=== PATIENT | female | born 1970 | race Caucasian/White ===

== ENCOUNTER 2024-09-11 15:38 | Outpatient (CLI) | payer OTHER, SELFPAY | END 2024-09-11 15:39 | disposition home or self-care (01) | PROVIDERS: PCP Registered Nurse; Visit Provider Registered Nurse | DX: R73.03 Prediabetes (principal); Z13.0 Encounter for screening for diseases of the blood and blood-forming organs and certain disorders involving the immune mechanism; Z13.6 Encounter for screening for cardiovascular disorders | CPT/HCPCS: 80053; 80061 ==

== ENCOUNTER 2025-03-15 08:49 | Inpatient (IN) | payer OTHER, SELFPAY ==
[2025-03-15] VITALS (23 sets, daily range): BP systolic 117–152; BP diastolic 46–96; PULSE 47–60; RESP 12–24; TEMP 36–36.8; O2SAT 94–100; BMI 40.4
[2025-03-15] MEDS: HYDROCODONE-ACETAMIN 5-325 MG 1 TAB PO (10:07)
--- NOTE | 2025-03-15 10:15 | CRLHL7_ITS ---
For Patients: As a result of the Cures Act, medical imaging exams and procedure reports are released immediately into your electronic medical record. You may view this report before your referring provider. If you have questions, please contact your health care provider. INDICATION: Atraumatic pain. COMPARISON: None available. TECHNIQUE: AP pelvis, AP and cross-table lateral right hip FINDINGS: Complete nondisplaced medially angulated right basicervical femoral neck fracture. IMPRESSION: Right femoral neck fracture as above. Dictated by Howard Roger MD @ 03/15/2025 11:07:56 AM (Electronically Signed)
--- OUTSIDE RECORDS SUMMARY | 2025-03-15 10:15 | XMS_ITS | Clinical Summary ---
Author Organization [facility] Address [facility] [place] [address] Care Team Providers Care Tank Assembler Name Role Phone Pcp, No Primary Care Provider UnavailBertha Weston Unavailable [phone] Allergies No known active allergies Medications naproxen sodium (Aleve) 220 mg cap Take 220 mg by mouth every 12 hours. Active Active Problems Problem Noted Date Diagnosed Date Melanoma 10/27/2024 Overview (11/19/2024): 10/21/24: Left upper thigh, Malignant melanoma. s/p Tasha 11/04/24 Encounters Date Type Department Care Team Description 03/15/2025 7:30 AM CDT Ancillary Procedure [facility] [address] [facility] [address] [place] [address] Arrived 03/15/2025 Travel 03/13/2025 Travel 03/12/2025 Nurse Triage [facility] Centralized Nurse Triage Pcp, No Back Pain 03/11/2025 Telephone [facility] [address] [place] [address] Jalen Mojica MD Appointment 03/08/2025 3:45 PM CDT Ancillary Procedure [facility] [address] [place] [address] 03/08/2025 2:40 PM CDT Office Visit [facility] [address] [place] [address] Jalen Mojica MD Musculoskeletal Problem (Consultation for RIGHT Hip pain x 1 year / Much worse this past weekend) 03/08/2025 Travel 12/30/2024 7:40 AM CDT Office Visit [facility] [address] [address] Bertha Stearns PA Derm Problem (Full body skin exam ) 12/30/2024 Travel 12/25/2024 Travel from Last 3 Months Social History Tobacco Use Types Packs/Day Years Used Date Smoking Tobacco: Never Smokeless Tobacco: Never Tobacco Cessation:Counseling Given: Not Answered Alcohol Use Standard Drinks/Week Comments Yes 0 (1 standard drink = 0.6 oz pur e alcohol) 3 drinks per month Social Connections Answer Date Recorded Do you often feel lonely or isolated from those around you? 0 03/08/2025 Financial Resource Strain Answer Date R ecorded Difficulty of Paying Living Expenses 3 03/08/2025 Difficulty of Paying Living Expenses Not on file 03/08/2025 Food Insecurity Answer Date Recorded Do you worry your food will run out before you are able to buy more? 1 03/08/2025 Transportation Needs Answer Date Record ed Does lack of transportation keep you from medica l appointments? 1 03/08/2025 Does lack of transportation keep you from work, meetings or getting things that you need? 1 03/08/2025 Housing Stability Answer Date Recorded What is your housing situation today? 1 03/08/2025 Utilities Answer Date Recorded Do you have trouble paying f or utilities (for example, heat, electricity, water, phone)? 1 03/08/2025 Comments Unknown Sex and Gender Information Value Date Recorded Sex Assigned at Not on file Legal Sex Female 12:02 PM [employer] Gender Identity Not on file Sexual Orientation Not on file Travel History Travel Start Travel End [place] 03/08/2025 03/12/2025 Obstetrics History Last Filed Vital Signs Vital Sign Reading Time Taken Comments Blood Pressure 122/76 03/08/2025 2:39 PM CDT Pulse 62 03/08/2025 2:39 PM CDT Temperature - - Respiratory Rate - - Oxygen Saturation 98% 03/08/2025 2:39 PM CDT Inhaled Oxygen Concentration - - Weight 114.7 kg (252 lb 14.4 oz) 03/08/2025 2:39 PM CDT Height 168.2 cm (5' 6.22) 03/08/2025 2:39 PM CD T Body Mass Index 40.55 03/08/2025 2:39 PM CDT Plan of Treatment Upcoming Encounters Date Type Department Care Team (Late st Contact Info) Description 03/16/2025 7:50 AM CDT Office Visit [facility] [address] [place] [address] Jalen Mojica MD [address] [place] [address] 04/14/2025 7:30 AM CDT Office Visit [facility] [address] [address] [place] [address] [place] [address] 04/29/2025 7:25 AM CDT Office Visit [facility] [address] [place] [address] Jalen Mojica MD [address] [place] [address] Health Maintenance Due Date Last Done Comments Tdap 1982 Depression screening for age 12+ 1983 HIV for age 15-65 1986 Hepatitis C screening for age 18-79 1989 Hepatitis B series for 19+ ( 1 of 3 - 19+ 3-dose series) 1990 Tetanus booster 1991 Pap test for age 21-65 1992 Colonoscopy through age 75 2016 Lipids for age 45-75 2016 Mammogram for age 45-75 2016 Pneumococcal series for age 50+ (1 of 1 - PCV) 021 Zoster (shingles) series for age 50+ (1 of 2) 03/28/20 21 COVID-19 vaccine series ( - 2023- season) 4 Influenza Vaccine (Season Ended) 2025 BMI (ht and wt on same day) for age 18+ 03/08/2026 0 03/08/2025 Procedures Procedure Name Priority Date/Time Associated Diagnosis Comments MR HIP RIGHT WO STAT 03/15/2025 8:04 AM CDT Hip pain, right XR HIP 1 VIEW W PELVIS RIGHT Routine 03/08/2025 3:50 PM CDT Hip pain, right from Last 3 Months Results * MR HIP RIGHT WO (03/15/2025 8:04 AM CDT) Anatomical Region Laterality Modality HIPR Magnetic Resonan ce 03/15/2025 8:15 AM CDT Impressions 03/15/2025 8:15 AM CDT 1. Acute fracture of the base of the right femoral neck with varus deformity. 2. Edema in the musculature of the right hip region and iliopsoas bursa consistent with recent injury. 3. Hysterectomy. 4. Small fat containing umbilical hernia. Dictated by Shakeel Cummings MD @ 03/15/2025 8:15:49 AM (Electronically Signed) Narrative 03/15/2025 8:15 AM CDT For Patients: As a result of the Cures Act, medical imaging exams and procedure reports are released immediately into your electronic medical record. You may view this report before your referring provider. If you have questions, please contact your health care provider. EXAM: MRI OF THE RIGHT HIP, WITHOUT CONTRAST CLINICAL INDICATION: Chronic hip pain with recent progression. COMPARISON PLAIN FILMS: 03/08/2025. COMPARISON CROSS-SECTIONAL IMAGING STUDIES: None. TECHNICAL: Axial, sagittal and coronal PD FS small field of view images of the hip. Coronal T1, PD FS and axial T1 images of the pelvis. FINDINGS: RIGHT HIP: Acute fracture of the base of the right femoral neck with prominent varus deformity. There is fluid along the femoral neck fracture. No adjacent intramedullary edema. No subchondral changes. LEFT HIP: No effusion or subchondral changes. No paralabral cyst. OSSEOUS STRUCTURES: No additional fractures are evident. No evidence for avascular necrosis. MUSCULOTENDINOUS STRUCTURES AND BURSAE: Edema in the right gluteus minimus, right gluteus medius, adductors and external rotators consistent with muscle strain. Small amount of fluid in the iliopsoas bursa. SOFT TISSUES: Mild subcutaneous edema in the right hip region. No hematoma. OTHER JOINTS: Sacroiliac joints are maintained. Pubic symphysis is maintained. INTRAPELVIC CONTENTS: No mass, fluid collection or adenopathy. No inguinal hernia. Hysterectomy. Small fat containing umbilical hernia. NEUROVASCULAR STRUCTURES: No abnormality involving the visualized proximal femoral or proximal sciatic nerves. No aneurysmal dilation of the visualized distal aorta or iliac arterial circulation. Procedure Note Shakeel Cummings MD - 03/15/2025 For Patients: As a result of the Cures Act, medical imagingexams and procedure reports are released immediately into your electronicmedical record. You may view this report before your referring provider.If you have questions, please contact your health care provider. EXAM: MRI OF THE RIGHT HIP, WITHOUT CONTRAST CLINICAL INDICATION: Chronic hip pain with recent progression. COMPARISON PLAIN FILMS: 03/08/2025. COMPARISON CROSS-SECTIONAL IMAGING STUDIES: None. TECHNICAL: Axial, sagittal and coronal PD FS small field of view images of the hip.Coronal T1, PD FS and axial T1 images of the pelvis. FINDINGS: RIGHT HIP: Acute fracture of the base of the right femoral neck with prominent varusdeformity. There is fluid along the femoral neck fracture. No adjacentintramedullary edema. No subchondral changes. LEFT HIP: No effusion or subchondral changes. No paralabral cyst. OSSEOUS STRUCTURES: No additional fractures are evident. No evidence for avascular necrosis. MUSCULOTENDINOUS STRUCTURES AND BURSAE: Edema in the right gluteus minimus, right gluteus medius, adductors andexternal rotators consistent with muscle strain. Small amount of fluid inthe iliopsoas bursa. SOFT TISSUES: Mild subcutaneous edema in the right hip region. No hematoma. OTHER JOINTS: Sacroiliac joints are maintained. Pubic symphysis is maintained. INTRAPELVIC CONTENTS: No mass, fluid collection or adenopathy. No inguinal hernia.Hysterectomy. Small fat containing umbilical hernia. NEUROVASCULAR STRUCTURES: No abnormality involving the visualized proximal femoral or proximalsciatic nerves. No aneurysmal dilation of the visualized distal aorta oriliac arterial circulation. IMPRESSION: 1. Acute fracture of the base of the right femoral neck with varusdeformity. 2. Edema in the musculature of the right hip region and iliopsoas bursaconsistent with recent injury. 3. Hysterectomy. 4. Small fat containing umbilical hernia. Dictated by Shakeel Cummings MD @ 03/15/2025 8:15:49 AM (Electronically Signed) us Jalen Mojica MD MR Final Res ult * XR HIP 1 VIEW W PELVIS RIGHT (03/08/2025 3:50 PM CDT) Anatomical Region Laterality Modality HIPS, HIPR, Pelvis Computed Radi ography 03/09/2025 9:25 AM CDT Narrative 03/09/2025 9:25 AM CDT For Patients: As a result of the Cures Act, medical imaging exams and procedure reports are released immediately into your electronic medical record. You may view this report before your referring provider. If you have questions, please contact your health care provider. Indication: Hip pain Technique: Pelvis and right hip 2 views Comparison: None Findings: Hip joints are maintained bilaterally. Incidental transitional lumbosacral anatomy on the left at L5-S1. No fracture. Intact pubic rami and symphysis pubis. Normal sacroiliac joints. Impression: Normal right hip joint. Dictated by Zachary Wilson MD @ 03/09/2025 9:25:54 AM (Electronically Signed) Procedure Note Zachary Wilson MD - 03/09/2025 For Patients: As a result of the Cures Act, medical imagingexams and procedure reports are released immediately into your electronicmedical record. You may view this report before your referring provider.If you have questions, please contact your health care provider. Indication: Hip pain Technique: Pelvis and right hip 2 views Comparison: None Findings: Hip joints are maintained bilaterally. Incidental transitional lumbosacralanatomy on the left at L5-S1. No fracture. Intact pubic rami and symphysispubis. Normal sacroiliac joints. Impression: Normal right hip joint. Dictated by Zachary Wilson MD @ 03/09/2025 9:25:54 AM (Electronically Signed) us Jalen Mojica MD GENERAL IMAGING Final Res ult from Last 3 Months Insurance [place] [id number] [employer] Care Teams Tank Assembler Relationship Specialty Start Date End Date Pcp, No . PCP - General 10/21/24 Bertha Stearns PA [address] [place] [address] Dermatology 10/27/24
--- NOTE | 2025-03-15 10:19 | ED.NURSE ---
Patient was wheeled to bathroom in wheelchair and used pivot on good leg to transfer.
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
--- NOTE | 2025-03-15 10:42 | CRLHL7_ITS ---
For Patients: As a result of the Cures Act, medical imaging exams and procedure reports are released immediately into your electronic medical record. You may view this report before your referring provider. If you have questions, please contact your health care provider. Indication: Hip fracture Comparison: None available. Technique: Single AP view chest Findings: There is hyperinflation and chronic interstitial change. There is no focal consolidation, effusion, or pneumothorax. The cardiomediastinal silhouette is within normal limits. The bony thorax is grossly intact. Impression: No acute cardiopulmonary abnormality. Dictated by Davin Mendoza MD @ 03/15/2025 11:13:08 AM (Electronically Signed)
[2025-03-15] MEDS: LACTATED RINGERS 1000 ML 1,000 ML 100 ML IV ×2 (13:05→18:21)
[2025-03-15] MEDS: SODIUM CHLORIDE 0.9 % (FLUSH) 10 ML SYRINGE IVF ×3 (13:14→20:16)
[2025-03-15] MEDS: MIDAZOLAM HCL 1 MG/ML inj IVP (14:35)
[2025-03-15] MEDS: fentaNYL 100 MCG/2 ML inj IVP (14:35)
--- NOTE | 2025-03-15 14:45 | CRLHL7_ITS ---
For Patients: As a result of the Cures Act, medical imaging exams and procedure reports are released immediately into your electronic medical record. You may view this report before your referring provider. If you have questions, please contact your health care provider. Indication: Hip replacement surgery Technique: AP hip fluoroscopic image. Fluoroscopy time 75.3 seconds. Findings/Impression: Hardware from a right total hip arthroplasty is in satisfactory position. Dictated by Zachary Wilson MD @ 03/16/2025 11:22:36 AM (Electronically Signed)
--- NOTE | 2025-03-15 14:51 | SUR.PREOP ---
TIME?OUT:?4565 PT/melody agustin RN/chandni costello MDA?VERIFICATION?OF?SURGICAL?SITE,?PROCEDURE,?AND?CONSENT OBTAINED?PRIOR?TO?INVASIVE?PROCEDURE.
--- NOTE | 2025-03-15 15:34 | W.PM.NB ---
Nerve Block Nerve Block Time Seen by Provider: 14:35 Date Seen: 03/15/25 Type of block requested by surgeon for post-operative analgesia: SUNNY/LFCN Side: right Time out performed: Yes Verification of patient name: Yes Verification of date of : Yes Site marking: site marked Name of person performing procedure: Isra Continuous monitoring Was continuous monitoring of O2 sat, B/P, entry level electrician, recorded every 15 minutes?: Yes Procedure Checklist: sterile prep, needles and gloves Ultrasound guided. Images saved: Yes Medications given in 5ml increments after negative aspiration: Ropivicaine %: 0.5 mL: 30 Needle gauge: 20 Precedex (mcg): 25 Patient tolerated procedure well: Yes Additional comments: Patient sedated in block room and attempt at SUNNY was made. Image quality was not ideal and pressure of the ultrasound probe caused too much pain. LFC was completed in preop. at 1545 in OR after induction of GA SUNNY block was performed after a timeout for safety was done. This time quality images were obtained. Needle noted below psoas tendon needle noted adjacent to LFCN Block Charges Block Charge (with Pro Fee): Other Periph Nerve Block Use of Ultrasound Machine for Block: Yes- US Guidance/pain block
--- NOTE | 2025-03-15 15:39 | PM.ORCN ---
History of Present Illness HPI Date Seen: 03/15/25 Chief complaint: right side hip fracture- MRI sending imagens Narrative: Shoshana is a pleasant 54-year-old female sent to the emergency department from Radiology after an abnormal MRI result of the right hip (it showed a displaced right femoral neck fracture). She has been experiencing bilateral anterior thigh and groin pain for approximately 1 year. This would flare when she would try to go from sit to stand position. Over last 2 weeks, the pain on the right side became significantly worse. She presented [facility] on 03/08/2025 where x-rays were obtained revealed no pathology. With ongoing right hip pain, she eventually presented for an MRI of the right hip on 03/15/2025 (today). Given the displaced fracture, she was promptly encouraged to transition over to the emergency department. There, x-rays were obtained and indeed showed a clear displaced femoral neck fracture. Orthopedics was consulted accordingly. [facility] Medical History Sleep apnea ?G47.30 - Sleep apnea, unspecified (ICD-10) Surgical History Previous section ?Z98.891 - History of uterine scar from previous surgery (ICD-10) History of cholecystectomy ?Z90.49 - Acquired absence of other specified parts of digestive tract (ICD-10) History of hysterectomy ?Z90.710 - Acquired absence of both cervix and uterus (ICD-10) Family History Mother Ovarian cancer, Onset Age: 45 Maternal Grandmother Breast cancer Father High blood pressure Social History What is your current living situation?: I presently have a place to live In the past 12 months, utilities in danger of being shut off: no In past 12 months, lack of transportation kept you from medical appts, meetings, work, or getting things needed for daily living: no In the past 12 mos, have been you worried that your food would run out before you had money to buy more?: never true In the past 12 mos, the food you bought just didn't last and you didn't have money to buy more?: never true Smoking Status: Never smoker How often do you have a drink containing alcohol: monthly or less AUDIT-C Alcohol total score: 1 Non-prescribed substance use: denies use Caffeine: Yes Are you now , , , , never or living with a partner: Social isolation score (0-1 are the most socially isolated patients): 1 How often does anyone, including family, friends and others, physically hurt you: never How often does anyone, including family, friends and others, insult or talk down to you: never How often does anyone, including family, friends and others, threaten you with harm: never How often does anyone, including family, friends and others, scream or curse at you: never Meds Home Medications and Allergies Home Medications ?Medication ?Instructions ?Recorded ?Confirmed ?Type No Known Home Medications 09/11/24 03/15/25 History Allergies Allergy/AdvReac Type Severity Reaction Status Date / Time No Known Drug Allergies Allergy Verified 12/29/24 15:30 Ortho Exam Narrative Exam Narrative: 169 cm tall reportedly. 113 kg. BMI of 40 She is lying supine on the [facility] upon my encounter. She is alert and orient x3. Cooperative with the exam. Provides the history, but her does augment the history. Right hip exam shows a resting externally rotated and shortened right lower extremity limb. Neurologic intact in the superficial and deep peroneal and plantar distribution to sensory light touch and motor function. 2+ DP and PT pulse. Hip and knee range of motion and strength testing are deferred due to the hip fracture. Left lower extremity otherwise has normal range of motion and normal mechanics without clear abnormality. She does have some groin pain with hip manipulation. Const Vital Signs, click to edit/add: Vital Signs - 24 hr 03/15/25 09:03 03/15/25 13:11 03/15/25 14:35 Temperature 98.2 F 97.9 F Pulse Rate 59 L 56 L Pulse Rate [Pulse Oximeter] 60 Respiratory Rate 18 16 16 Blood Pressure 152/64 H 148/95 H Blood Pressure [Right Upper Arm] 128/69 Pulse Oximetry 94 97 100 Oxygen Delivery Method Room Air Room Air Room Air 03/15/25 14:40 03/15/25 14:45 Temperature Pulse Rate 58 L 59 L Pulse Rate [Pulse Oximeter] Respiratory Rate 16 16 Blood Pressure 144/81 H 145/73 H Blood Pressure [Right Upper Arm] Pulse Oximetry 100 100 Oxygen Delivery Method Room Air Room Air Results Labs Labs: Laboratory Results - last 48 hr 03/15/25 12:53 Blood Type O Positive Antibody Screen NEGATIVE Diagnostic results Additional Comments: AP pelvis and cross-table lateral view radiographs of the right hip from [facility] day 03/15/2025 were ordered by different provider and reviewed by me. This demonstrates a displaced right femoral neck fracture. Varus angulation, shortening, external rotation to the shaft relative to the pelvis. Large soft tissue envelope is also noted suspicious of morbid obesity. AP and frog lateral view radiographs of the right hip from [facility] dated 03/08/2025 were ordered by different provider and reviewed by me. This shows no acute fractures, avulsions, or intraosseous pathology. No signs of AVN. No appreciable irregularity to the trabecular lines on either hip. Well-preserved joint space bilaterally. MRI from [facility] dated 03/15/2025 was also reviewed and corroborated with the radiology report. This shows a displaced right femoral neck fracture, acute appearing. Varus deformity, shortening, external rotation all noted. Edema within the surrounding musculature consistent with recent injury. Contralateral left hip otherwise shows no significant edema, signs of AVN, or other MRI related pathology. Both joints appear to have decent joint space preservation/cartilage layering. Assessment and Plan Assessment and plan (1) Femoral neck fracture: Status: Acute (2) Morbid obesity: Status: Acute Plan I had a lengthy, thorough discussion with the patient and her . I helped him understand her pathology. I showed them the radiographs. We also talked through the next step options. While nonoperative management could be considered as this is not actively life threatening, I do not think it is a reasonable decision as she was previously a community ambulator. Instead, I do think surgery is indicated. This would be for a right total hip arthroplasty. We talked through the idea of the blood supply being compromised. This fracture is close to extracapsular, but it certainly has the concerning features that to may make it appear intracapsular. As such, I do think a total hip arthroplasties more predictable at relieving her symptoms. I do not think a bipolar is a great option for young patient like her. We discussed the risks, benefits, and alternatives. This includes local risks (e.g. Infection, wound healing issues, [aseptic loosening, instability, fracture]) as well as systemic risks (e.g. VTE, VA, stroke). She states understanding. Indeed she would like to proceed with surgery. I would anticipate being able to do this today. She has been NPO since last night. We will plan to keep her here in the hospital overnight. Following that, I would anticipate weightbear as tolerated following the surgery. I have coordinate care with the anesthesia team. I have also coordinated care with the emergency room physician.
--- NOTE | 2025-03-15 15:51 | CRLHL7_ITS ---
For Patients: As a result of the Cures Act, medical imaging exams and procedure reports are released immediately into your electronic medical record. You may view this report before your referring provider. If you have questions, please contact your health care provider. Indication: POST OP RIGHT GAIL Technique: AP hip centered pelvis and lateral view right hip Findings/Impression: Hardware from a right total hip arthroplasty is in satisfactory position. Bone alignment is normal. No sign of acute fracture. Postop changes are within normal limits. Dictated by Zachary Wilson MD @ 03/16/2025 11:23:11 AM (Electronically Signed)
[2025-03-15] MEDS: TRANEXAMIC ACID 100 MG/ML INJ 1000 MG IV (16:18)
[2025-03-15] MEDS: CEFAZOLIN 1 GM inj IVP (16:18)
--- NOTE | 2025-03-15 18:29 | P.ORPRC_ITS ---
Procedure Note Date of procedure: 03/15/25 Procedure: PREOPERATIVE DIAGNOSIS: 1. Right femoral neck fracture, acute, displaced, closed 2. Morbid obesity-BMI 40.4 POSTOPERATIVE DIAGNOSIS: 1. Right femoral neck fracture, acute, displaced, closed 2. Morbid obesity-BMI 40.4 PROCEDURE: 1. Right total hip arthroplasty for femoral neck fracture-anterior approach- modifier 22. 75% added time and difficulty for this case due to patient's body habitus and BMI of 40.4 (morbidly obese). Subcutaneous fat depth was 6cm. Hip depth from the skin surface was very deep and required longer retractors and retractor modification as well as more assistance than typical. A longer incision, longer fluoroscopy time, and more tissue mobility to complete the procedure safely was required. 2. 76039 - intraoperative fluoroscopy >1 hour SURGEON: Ronnie Cobos MD. COMMERCIAL COORDINATOR: Kan Yu PA-C; Maris Malik PA-C - Of note, a skilled health education assistant was critical for this case to aid in patient positioning, tissue retraction, limb manipulation/positioning, and closure. ANESTHESIA: General endotracheal anesthetic EBL: 300 mL IMPLANTS: DePuy J&J uncemented total hip Enhance cup size 48, dual mobility liner Actis stem, standard offset, size 4 +8.5 mm ceramic 28 mm inner head and 38 mm outer dual mobility polyethylene head COMPLICATIONS: None evident INDICATIONS: The patient is a pleasant 54-year-old female who sustained a right femoral neck fracture was displaced. She did not realize it. She had x-rays obtained on 03/08/2025 which revealed no fracture. She when to obtain an MRI today. This revealed a displaced right femoral neck fracture. So sometime bet ween last week and today this fracture occurred and displaced. She was presented to our emergency department today. Given her displaced fracture, surgery was indicated. Given her youthful age and the compromised blood supply to the femoral head, it was recommended to undergo a total hip replacement. FINDINGS: Large subcutaneous fat layer prior to accessing the deeper fascia. Great depth from skin surface down to the hip joint making access to the acetabulum and femur very difficult. Beyond that, relatively healthy articular cartilage on the femoral head and acetabulum. Femoral neck fracture was noted with small hematoma encountered. DESCRIPTION OF PROCEDURE: Following a thorough discussion of risks, benefits, and alternatives consent was obtained and the right hip was marked. The patient was brought to the operating room and placed supine on the operating table. Induction of anesthesia was undertaken. 2 g IV Ancef and 1 g tranexamic acid was administered within 1 hr of incision preoperatively. Proper time-out was performed identifying proper patient, site, procedure. The operative extremity was prepped and draped in the appropriate sterile fashion using ChloraPrep after the patient was positioned on the [place] table with head in neutral alignment and all bony prominences well padded. C-arm fluoroscopic imaging was utilized to confirm proper pelvis rotation and position, and to get true AP films of both the contralateral left, and the affected right hip. This is for comparison. A longitudinal incision was made starting approximately 1 cm distal to the ASIS, and 3-4 cm lateral. The incision was extended distally aiming toward the lateral border the patella. Sharp incision through skin and bovie cautery through the subcutaneous tissue allowed identification of the TFL fascia. This was sharply divided, and the fascia bluntly released from the muscle fibers as we dissected medial. Upon coming to the medial border, we were able to retract the TFL laterally, and penetrated the deeper fascia and identify the crossing circumflex vessels. These were ligated/cauterized. The rectus was elevated from the capsule, and retractors placed laterally and medially along the femoral neck to help with visualization of the capsule. We then performed an inverted T capsulotomy. The capsule was tagged for later repair. Retractors were placed inside the capsule. The femoral neck was visualized after releasing medially down to the lesser trochanter, along the saddle laterally, and up onto the acetabulum. The femoral neck cut was freshened. The head was removed in a single piece, and sized. We turned our attention to acetabular preparation. Initially, the labrum was resected from around the perimeter and the pulvinar was excised allowing us to visualize the false wall. We started the reaming with a 40 mm reamer. This was medialized down to the true wall. We then enlarged our reamers sequentially up to the size of the selected cup size. We trialed at the same size and found it to have an excellent fit. The selected cup was then opened, inserted, and impacted in line with the goal of 40? of abduction, and 20-25? of anteversion. This was confirmed on C-arm fluoroscopic imaging to be in the appropriate/goal position. Once the cup was placed we placed a trial liner for the dual mobility. Attention was turned to the femoral preparation. The limb was extended, externally rotated, and adducted. The posteromedial capsule was released, as retractors were placed while challenging access to the proximal femur was achieved. Longer retractors and retractor modifications were needed to expose the femur adequately/safely. Initially a dust box worker was followed by canal finder followed by various broaches. We broached sequentially up to the size noted above, found it to have excellent rotational control, and trialing various heads and necks, revealed that appropriate neck offset, and the above noted head size provided the greatest stability, and sabianist of length, and offset. C- arm fluoroscopic imaging confirmed position of the stem, as well as leg lengths, which were compared with the pre procedure all fluoroscopic images. Trial implants were removed, the real femoral stem inserted, as was the appropriate head. After reducing, the leg was placed through range of motion and stability was confirmed anterior, posterior, and lateral. A 3 min Betadine soak was then performed, and thorough irrigation with normal saline followed. Closure of the capsule was performed with #1 PDS. Bleeding was confirmed to be controlled at this stage, and the TFL fascia was closed with #0 strata fix. Subcutaneous, and subcuticular closure was performed with 2-0 Vicryl and 4-0 Monocryl, respectively. Dressings were applied, and the patient was awoken from anesthesia and transferred the PACU in stable condition. A skilled health education assistant was critical for this case to aid in patient positioning, tissue retraction, acetabular and proximal femoral exposure, limb manipulation/positioning, dislocation/relocation, patient safety, and closure. Again, 75% added time and difficulty for this case due to patient's body habitus and BMI of 40.4 (morbidly obese). Hip depth from the skin surface was very deep and required longer retractors and retractor modification as well as more assistance than typical. A required a longer incision and more tissue mobility to complete the procedure safely. PLAN: 1. Weight bear as tolerated operative extremity. 2. 23 hr perioperative antibiotics. 3. Ice. 4. PT/OT consults for ambulation assistance/mobility education. 5. Social work consult for discharge planning. 6. DVT prophylaxis with at SCDs and Xarelto x5 days followed by aspirin for a total of 1 month..
--- NOTE | 2025-03-15 19:43 | P.ANES_ITS ---
Anesthesia Charges Start Date/Time Anesthesia Start Date: 03/15/25 Anesthesia Start Time: 15:39 Stop Date/Time Anesthesia Stop Date: 03/15/25 Anesthesia Stop Time: 19:42 Coding CPT Codes CPT Codes: ANESTH HIP ARTHROPLASTY - 81057 ([id number]) P3 - PATIENT W/SEVERE SYS DISEASE, QZ - TECHNOLOGY DEVELOPMENT INTERN SVC W/O SAFETY LEAD BY
--- NOTE | 2025-03-15 19:43 | W.ANESCHARGE ---
Anesthesia Charges Start Date/Time Anesthesia Start Date: 03/15/25 Anesthesia Start Time: 15:39 Stop Date/Time Anesthesia Stop Date: 03/15/25 Anesthesia Stop Time: 19:42 Coding CPT Codes CPT Codes: ANESTH HIP ARTHROPLASTY - 41871 ([id number]) P3 - PATIENT W/SEVERE SYS DISEASE, QZ - BRAKE RELINER SVC W/O COPYWRITING INTERN BY
--- NOTE | 2025-03-15 19:51 | SUR.PHASEI ---
Patient came to PACU awake and appropriate, denies right hip pain.
[2025-03-15] MEDS: fentaNYL 100 MCG/2 ML inj 50 MCG IVP ×2 (20:05→20:16)
--- NOTE | 2025-03-15 20:23 | SUR.PHASEI ---
Patient meets discharge criteria from PACU
--- NOTE | 2025-03-15 21:17 | P.IMHP_ITS ---
Assessment and Plan Assessment and plan (1) S/P total hip arthroplasty: Problem comment: Bipolar arthroplasty for femoral neck fracture performed by Dr. Cobos 03/15/2025 without apparent complication Status: Acute (2) Femoral neck fracture: Status: Acute (3) Bone disease, metabolic: Problem comment: Nontraumatic hip fracture is suspicious for metabolic bone disease such as osteoporosis. CBC electrolytes calcium alkaline phosphatase are normal. Vitamin D and phosphorus levels are pending Status: Suspected (4) Sleep apnea: Problem comment: Use home CPAP Status: Acute (5) Pre-diabetes: Problem comment: Hemoglobin A1c is 5.8. Status: Acute (6) Morbid obesity: Status: Acute (7) Bradycardia: Problem comment: Postop sinus bradycardia. Monitor. Asymptomatic. Status: Acute Plan 54-year-old female with a femoral neck fracture status post bipolar arthroplasty. She is admitted to the hospital for postoperative management including management of pain and other medical problems including sleep apnea, bradycardia. Total Time Spent Total Time Spent: Total time spent today is 75 minutes in coordination of care, review of records, discussing with patient and other providers and ongoing management of above medical problems Hospitalist- H&P: HPI History of Present Illness Date Seen: 03/15/25 Chief complaint: right side hip fracture- MRI sending imagens Narrative: Shoshana Flores is a 54 year old female with obstructive sleep apnea on CPAP, obesity (BMI 40), prediabetes with a hemoglobin A1c of 5.8 admitted to the hospital with a right femoral neck fracture. She has had longstanding bilateral hip pain of uncertain etiology. She has had a variety of soft tissue injury diagnoses. She does not recall ever having an injury to her hips causing this. Between a week and a week and half ago she developed increasing pain primarily on the right. She she was seen in an emergency room in [place] where she was visiting her father and radiographs showed no bony abnormality. She was given crutches. While walking with the crutches she took a misstep in a parking lot and had of abrupt onset of worst pain on her right side. That may be the moment when the fracture dislocated. She returned to [place] where she had an MRI which showed an obvious femoral neck fracture and subsequently plain films showed an obvious femoral neck fracture. She reports no fall or other injury that could account for her fracture. She does not do any repetitive activity that would cause a stress fracture. She has done known to have any metabolic bone disease such as osteoporosis. She has not had other fractures. She does have chronic low back pain. She also has chronic bilateral hip pain that is been going on for a year and a half and continues to bother her. She has sleep apnea and uses CPAP. . Review of Systems Narrative: She reports generally being healthy other than the problems outlined above. Medical Decision Making Medical Decision Making Code Status: Full code Has patient completed a Health Care Directive: No During This Stay, Who Would You Like To Make Decisions For You In The Event You Are Unable To Make Them For Yourself?: Justo [facility] Medical History (Updated 03/15/25 @ 21:45 by Maxx Arango MD) Bone disease, metabolic ?M89.8X9 - Other specified disorders of bone, unspecified site (ICD-10) Pre-diabetes ?R73.03 - Prediabetes (ICD-10) Morbid obesity ?E66.01 - Morbid (severe) obesity due to excess calories (ICD-10) Sleep apnea ?G47.30 - Sleep apnea, unspecified (ICD-10) Surgical History (Updated 03/15/25 @ 21:41 by Maxx Arango MD) S/P total hip arthroplasty ?Z96.649 - Presence of unspecified artificial hip joint (ICD-10) Previous section ?Z98.891 - History of uterine scar from previous surgery (ICD-10) History of cholecystectomy ?Z90.49 - Acquired absence of other specified parts of digestive tract (ICD- 10) History of hysterectomy ?Z90.710 - Acquired absence of both cervix and uterus (ICD-10) Family History (Updated 03/15/25 @ 21:35 by Maxx Arango MD) Mother Ovarian cancer, Onset Age: 45 Maternal Grandmother Breast cancer Father High blood pressure Glioblastoma Social History What is your current living situation?: I presently have a place to live In the past 12 months, utilities in danger of being shut off: no In past 12 months, lack of transportation kept you from medical appts, meetings, work, or getting things needed for daily living: no In the past 12 mos, have been you worried that your food would run out before you had money to buy more?: never true In the past 12 mos, the food you bought just didn't last and you didn't have money to buy more?: never true Smoking Status: Never smoker How often do you have a drink containing alcohol: monthly or less AUDIT-C Alcohol total score: 1 Non-prescribed substance use: denies use Caffeine: Yes Are you now , , , , never or living with a partner: Social isolation score (0-1 are the most socially isolated patients): 1 How often does anyone, including family, friends and others, physically hurt you : never How often does anyone, including family, friends and others, insult or talk down to you: never How often does anyone, including family, friends and others, threaten you with harm: never How often does anyone, including family, friends and others, scream or curse at you: never Meds Home Medications and Allergies Home Medications ?Medication ?Instructions ?Recorded ?Confirmed ?Type No Known Home Medications 09/11/2402/22 History Home Medication Comments: P.r.n. ibuprofen Allergies Allergy/AdvReac Type Severity Reaction Status Date / Time No Known Drug Allergies Allergy Verified 12/29/24 15:30 Exam Narrative: Exam Narrative: She is alert and appears in no distress. She gives her own history. Eyes normal. Oropharynx with small airway and very dry mucous membranes. Neck is supple without mass or adenopathy. Respirations are clear to auscultation. No wheezing rales or rhonchi. Breathing is unlabored. Cardiovascular: S1, S2, regular rate and rhythm. No murmur gallop or rub. Abdomen: Bowel sounds active. Abdomen is soft without tenderness or mass. Lower extremities with intact pulses and sensation. Normal strength and motion in feet and ankles. Tr dejan edema bilaterally. Const: Vital Signs, click to edit/add: Vital Signs - 24 hr 03/15/25 09:03 03/15/25 13:11 03/15/25 14:35 Temperature 98.2 F 97.9 F Pulse Rate 59 L 56 L Pulse Rate [Pulse Oximeter] 60 Respiratory Rate 18 16 16 Blood Pressure 152/64 H 148/95 H Blood Pressure [Ri ght Upper Arm] 128/69 Pulse Oximetry 94 97 100 Oxygen Delivery Me thod Room Air Room Air Room Air 03/15/25 14:40 03/15/25 14:45 03/15/25 19:38 Temperature 97.0 F L Pulse Rate 58 L 59 L 54 L Pulse Rate [Pulse Oximeter] Respiratory Rate 16 16 12 Blood Pressure 144/81 H 145/73 H 126/53 L Blood Pressure [Ri ght Upper Arm] Pulse Oximetry 100 100 97 Oxygen Delivery Me thod Room Air Room Air Room Air 03/15/25 19:45 03/15/25 19:50 03/15/25 19:55 Temperature Pulse Rate 49 L 52 L 53 L Pulse Rate [Pulse Oximeter] Respiratory Rate 12 12 16 Blood Pressure 127/52 L 119/46 L 123/77 Blood Pressure [Ri ght Upper Arm] Pulse Oximetry 99 97 99 Oxygen Delivery Me thod Room Air 03/15/25 20:00 03/15/25 20:05 03/15/25 20:10 Temperature 97.7 F Pulse Rate 55 L 53 L 53 L Pulse Rate [Pulse Oximeter] Respiratory Rate 24 14 14 Blood Pressure 128/96 H 117/63 120/55 L Blood Pressure [Ri ght Upper Arm] Pulse Oximetry 100 99 100 Oxygen Delivery Me thod Room Air Room Air 03/15/25 20:15 03/15/25 20:20 Temperature Pulse Rate 49 L 49 L Pulse Rate [Pulse Oximeter] Respiratory Rate 16 14 Blood Pressure 130/50 L Blood Pressure [Ri ght Upper Arm] Pulse Oximetry 100 98 Oxygen Delivery Me thod Room Air Documenting provider has reviewed patient's vital signs: yes
[2025-03-15] MEDS: ONDANSETRON 2 MG/ML inj 4 MG IVP (21:42)
[2025-03-15] MEDS: LACTATED RINGERS 1000 ML 1,000 ML 75 ML IV (21:55)
[2025-03-15] MEDS: LACTATED RINGERS 500 ML 500 ML IV (21:57)
[2025-03-15] MEDS: ACETAMINOPHEN 500 MG TABLET 1000 MG PO (22:00)
[2025-03-15] MEDS: SENNOSIDES 1 TAB TABLET 2 TAB PO (22:00)
[2025-03-15] MEDS: CEFAZOLIN 2 GM in 0.9 % SODIUM CHLORIDE Mini-bag 100 ML IVPB (22:56)
[2025-03-16] VITALS (9 sets, daily range): BP systolic 126–163; BP diastolic 54–94; PULSE 55–88; RESP 14–20; TEMP 36.4–38.2; O2SAT 90–99
[2025-03-16] MEDS: OXYCODONE 5 MG TABLET PO ×8 (02:06→23:04)
[2025-03-16] MEDS: ACETAMINOPHEN 500 MG TABLET 1000 MG PO ×4 (02:55→22:53)
[2025-03-16] MEDS: CEFAZOLIN 2 GM in 0.9 % SODIUM CHLORIDE Mini-bag 100 ML IVPB (06:11)
[2025-03-16 06:30] LABS: Basophils Absolute Auto 0.03 K/uL (0.00-0.30); Basophils Percent Auto 0.3 % (0.0-3.0); Eosinophils Absolute Auto 0.04 K/uL (0.00-0.50); Eosinophils Percent Auto 0.4 % (0.0-7.0); Hematocrit 30.1 % (33.0-51.0); Hemoglobin* 9.9 gm/dL (12.0-16.0); Immature Granulocytes Abs Auto 0.02 K/uL (0.00-0.30); Immature Granulocytes Pct Auto 0.2 %; Lymphocytes Percent Auto 13.3 % (20-44); Mean Corpuscular HGB Conc 33 gm/dL (32-36); Mean Corpuscular Hemoglobin 28 pg (26-34); Mean Corpuscular Volume 86 fL (80-100); Monocytes Percent Auto 7.4 % (0.0-11.0); Neutrophils Percent Auto 78.4 % (42.0-72.0); Platelet Count* 225 K/uL (140-440); RDW Coefficient of Variation % 12.5 % (11.5-15.5); White Blood Count* 10.21 K/uL (4.50-11.00)
[2025-03-16 06:34] LABS: Slide Review Reflex No
[2025-03-16 06:41] LABS: Potassium* 3.9 mmol/L (3.6-5.1); Sodium* 137 mmol/L (135-149)
[2025-03-16 06:44] LABS: Blood Urea Nitrogen* 16 mg/dL (7-30); Creatinine* 0.7 mg/dL (0.5-1.5); Est. Creatinine Clearance* 87.01; Estimated Glomerular Filt Rate 103 ml/min; Phosphorus* 3.1 mg/dL (2.5-4.5)
--- NOTE | 2025-03-16 06:55 | PC.NURSE ---
Pt alert and oriented. Pt had complaints of pain ranging 0-8; see EMAR for intervention. Pt up with assist of one with gait belt and walker. VSS. Pt is on oxygen overnight as home CPAP was not brought in.?
[2025-03-16 07:03] LABS: Vitamin D 25 Hydroxy* 17 ng/mL (30-80)
[2025-03-16] MEDS: SENNOSIDES 1 TAB TABLET 2 TAB PO ×2 (08:52→20:20)
[2025-03-16] MEDS: RIVAROXABAN 10 MG TABLET PO (08:52)
[2025-03-16] MEDS: hydrOXYzine pamoate 25 MG CAPSULE PO ×2 (11:01→14:15)
--- NOTE | 2025-03-16 11:39 | PC.SOCIAL ---
Discharge planning: tin worker met with the pt and her today after the pt met with OT. Pt has been experiencing a lot of pain. Pt states she would like to go home this afternoon if her pain can become more manageable. Pt and her stated that they felt they had all the supplies and tools that they need at home for the patients discharge from the hospital. Social work to follow-up as needed.
--- NOTE | 2025-03-16 12:33 | PM.ORPN ---
Subjective Subjective Date Seen: 03/16/25 Principal diagnosis: POD 1 right GAIL - anterior approach for femoral neck fx Interval history: Patient reports struggling with postoperative pain. No acute events over night. Pain managed with scheduled and PRN medications, ice. Recent dosages of acetaminophen, oxycodone, and distraught have greatly helped her pain. DVT prophylaxis: Rivaroxaban, SCDs, walking. Denies fevers, chills, aches, N/V, CP, SOB/WELLS, or lightheadedness. Ortho Exam Narrative Exam Narrative: -Patient appears comfortable in bed; no apparent acute distress. present. -Alert and oriented times 3 -Operative hip swollen; soft tissues supple; no obvious erythema. Ecchymosis minimal. Warmth appropriate -Surgical dressing clean, dry, intact; no obvious drainage, no erythematous streaking peripheral to the bandage -Bilateral calves soft and supple; no significant swelling, edema, tenderness, erythema, discoloration, warmth, or palpable cords -2+ DP/PT pulses, intact dermatomes and myotomes distally (5/5 strength). No numbness about the lateral femoral cutaneous nerve distribution. Const Vital Signs, click to edit/add: Vital Signs - 24 hr 03/15/25 13:11 03/15/25 14:35 03/15/25 14:40 Temperature 97.9 F Pulse Rate 59 L 56 L 58 L Pulse Rate [Pulse Oximeter] Respiratory Rate 16 16 16 Blood Pressure 152/64 H 148/95 H 144/81 H Blood Pressure [Left Arm] Pulse Oximetry 97 100 100 Oxygen Delivery Method Room Air Room Air Room Air Oxygen Flow Rate 03/15/25 14:45 03/15/25 19:38 03/15/25 19:45 Temperature 97.0 F L Pulse Rate 59 L 54 L 49 L Pulse Rate [Pulse Oximeter] Respiratory Rate 16 12 12 Blood Pressure 145/73 H 126/53 L 127/52 L Blood Pressure [Left Arm] Pulse Oximetry 100 97 99 Oxygen Delivery Method Room Air Room Air Oxygen Flow Rate 03/15/25 19:50 03/15/25 19:55 03/15/25 20:00 Temperature Pulse Rate 52 L 53 L 55 L Pulse Rate [Pulse Oximeter] Respiratory Rate 12 16 24 Blood Pressure 119/46 L 123/77 128/96 H Blood Pressure [Left Arm] Pulse Oximetry 97 99 100 Oxygen Delivery Method Room Air Room Air Oxygen Flow Rate 03/15/25 20:05 03/15/25 20:10 03/15/25 20:15 Temperature 97.7 F Pulse Rate 53 L 53 L 49 L Pulse Rate [Pulse Oximeter] Respiratory Rate 14 14 16 Blood Pressure 117/63 120/55 L 130/50 L Blood Pressure [Left Arm] Pulse Oximetry 99 100 100 Oxygen Delivery Method Room Air Oxygen Flow Rate 03/15/25 20:20 03/15/25 20:30 03/15/25 20:45 Temperature 97.3 F L 97.2 F L Pulse Rate 49 L 50 L 57 L Pulse Rate [Pulse Oximeter] Respiratory Rate 14 14 16 Blood Pressure 139/68 133/69 Blood Pressure [Left Arm] Pulse Oximetry 98 95 96 Oxygen Delivery Method Room Air Room Air Room Air Oxygen Flow Rate 03/15/25 21:00 03/15/25 21:15 03/15/25 21:30 Temperature 97.2 F L 97.2 F L 97.1 F L Pulse Rate 58 L 58 L 55 L Pulse Rate [Pulse Oximeter] Respiratory Rate 16 16 16 Blood Pressure 144/78 H 149/84 H 149/84 H Blood Pressure [Left Arm] Pulse Oximetry 98 98 98 Oxygen Delivery Method Room Air Room Air Room Air Oxygen Flow Rate 03/15/25 22:00 03/15/25 22:30 03/15/25 22:51 Temperature 96.8 F L 96.8 F L Pulse Rate 57 L 47 L Pulse Rate [Pulse Oximeter] Respiratory Rate 16 16 16 Blood Pressure 124/64 135/73 Blood Pressure [Left Arm] Pulse Oximetry 96 95 95 Oxygen Delivery Method Room Air Room Air Room Air Oxygen Flow Rate 03/15/25 23:00 03/16/25 00:00 03/16/25 01:00 Temperature 97.5 F L 97.5 F L Pulse Rate 59 L 73 63 Pulse Rate [Pulse Oximeter] Respiratory Rate 18 16 Blood Pressure 153/94 H 163/80 H Blood Pressure [Left Arm] Pulse Oximetry 93 95 Oxygen Delivery Method Room Air Room Air Oxygen Flow Rate 03/16/25 02:00 03/16/25 03:00 03/16/25 07:00 Temperature 97.7 F 98.2 F Pulse Rate 55 L 60 Pulse Rate [Pulse Oximeter] Respiratory Rate 16 14 20 Blood Pressure 147/85 H 131/72 Blood Pressure [Left Arm] Pulse Oximetry 93 90 99 Oxygen Delivery Method Room Air Nasal Cannula Room Air Oxygen Flow Rate 1 03/16/25 07:00 03/16/25 07:00 Temperature 100.7 F H Pulse Rate 76 Pulse Rate [Pulse Oximeter] 76 Respiratory Rate 20 Blood Pressure Blood Pressure [Left Arm] 149/71 H Pulse Oximetry 99 Oxygen Delivery Method Room Air Oxygen Flow Rate Assessment and Plan Assessment and plan (1) S/P total hip arthroplasty: Problem details: Anterior Total Hip Arthroplasty for femoral neck fracture performed by Dr. Cobos 03/15/2025 without apparent complication Status: Acute (2) Femoral neck fracture: Status: Acute (3) Bone disease, metabolic: Problem details: Nontraumatic hip fracture is suspicious for metabolic bone disease such as osteoporosis. CBC electrolytes calcium alkaline phosphatase are normal. Vitamin D and phosphorus levels are pending Status: Suspected (4) Sleep apnea: Problem details: Use home CPAP Status: Acute (5) Pre-diabetes: Problem details: Hemoglobin A1c is 5.8. Status: Acute (6) Morbid obesity: Status: Acute (7) Bradycardia: Problem details: Postop sinus bradycardia. Monitor. Asymptomatic. Status: Acute Plan - Complete 23 hour perioperative antibiotics. - PT/OT consult for education and assistance. - Social work consult for discharge planning - Prescribed analgesics as needed - may consider adding OxyContin q.12 hours for home discharge med if pain is still not well managed with the current regimen. - DVT prophylaxis: Rivaroxaban, walking, and SCDs - Anticipation is for discharge to home with today 03/16/2025 if the patient remains medically stable, pain is controlled, and they are safe with mobilization. At this point, pain management is doing discharge. She also came to the med surg floor late last night; thus I expect she would be on the floor for a few more hours for recovery.
[2025-03-16] MEDS: SODIUM CHLORIDE 0.9 % (FLUSH) 10 ML SYRINGE IVF (15:18)
[2025-03-16] MEDS: HYDROmorphone 0.5 mg/0.5 ml inj IVP (15:18)
[2025-03-16] MEDS: GABAPENTIN 300 MG CAPSULE PO ×2 (15:55→20:24)
[2025-03-16] MEDS: hydrOXYzine pamoate 25 MG CAPSULE 50 MG PO ×2 (15:55→20:24)
--- NOTE | 2025-03-16 16:14 | PM.IMPN1 ---
Assessment and Plan Assessment and plan (1) S/P total hip arthroplasty: Problem comment: -Anterior Total Hip Arthroplasty for femoral neck fracture performed by Dr. Cobos 03/15/2025 without apparent complication -difficult to manage postop pain: Schedule hydroxyzine, acetaminophen, gabapentin. Continue with p.r.n. oxycodone and add p.r.n. cyclobenzaprine. Status: Acute (2) Femoral neck fracture: Problem comment: Fracture from standing state Status: Acute (3) Bone disease, metabolic: Problem comment: Nontraumatic hip fracture is suspicious for metabolic bone disease such as osteoporosis. CBC electrolytes calcium alkaline phosphatase are normal. Vitamin D and phosphorus levels are pending Status: Suspected (4) Sleep apnea: Problem comment: Use home CPAP Status: Acute (5) Pre-diabetes: Problem comment: Hemoglobin A1c is 5.8. Status: Acute (6) Morbid obesity: Status: Acute (7) Bradycardia: Problem comment: Postop sinus bradycardia. Monitor. Asymptomatic. Status: Acute (8) Restless legs syndrome with nocturnal myoclonus: Problem comment: -will initiate gabapentin 300 mg p.o. b.i.d. for nocturnal myoclonus as well as postop thigh pain -will ask Physical therapy to recommend daily stretching exercises Status: Acute Plan 1. Reviewed impression, plan, recommendations with patient and 2. Answered their questions to their satisfaction 3. The agreeable with above stated plans and recommendations Total Time Spent Total Time Spent: 45 minutes Subjective Date Seen: 03/16/25 Interval history: Hospital day 2, postoperative day 1 status post right total hip arthroplasty due to acute, displaced, closed Right femoral neck fracture, status post fall from standing position. Complains of great deal of right thigh pain. Still working on getting this pain under control. Working with ice, stretching, and pharmacologic modalities including non opioid use with hydroxyzine and acetaminophen plus immediate release oral oxycodone. In the course of describing this condition she also articulates nocturnal myoclonic jerk of right lower extremity for the past 1-2 years, awakens her at night, with flexion of the right hip and knee to the point were she says she actually kicks her buttock with her right heel when this happens. Interestingly she states that she tries to control this by keeping her leg extended. Working with physical and occupational therapy. Still not ready for discharge due to uncontrolled pain and anxiety associated there with. Exam Narrative: Exam Narrative: Examine her in her hospital room. Appears anxious. Working to control her discomfort with ice packs and keeping her leg extended. Alert and oriented x4. Articulate and cooperative. Lungs are clear to auscultation. Heart tones with regular rhythm. Abdomen with active bowel sounds, soft, nontender. Able to extend both legs. Minimal edema right lower extremity. Const: Vital Signs, click to edit/add: Vital Signs - 24 hr 03/15/25 19:38 03/15/25 19:45 03/15/25 19:50 Temperature 97.0 F L Pulse Rate 54 L 49 L 52 L Pulse Rate [Pulse Oximeter] Respiratory Rate 12 12 12 Blood Pressure 126/53 L 127/52 L 119/46 L Blood Pressure [Le ft Arm] Pulse Oximetry 97 99 [facility] Rate 03/15/25 19:55 03/15/25 20:00 03/15/25 20:05 Temperature Pulse Rate 53 L 55 L 53 L Pulse Rate [Pulse Oximeter] Respiratory Rate 16 24 14 Blood Pressure 123/77 128/96 H 117/63 Blood Pressure [Le ft Arm] Pulse Oximetry 99 100 99 [facility] Room Air Oxygen Flow Rate 03/15/25 20:10 03/15/25 20:15 03/15/25 20:20 Temperature 97.7 F Pulse Rate 53 L 49 L 49 L Pulse Rate [Pulse Oximeter] Respiratory Rate 14 16 14 Blood Pressure 120/55 L 130/50 L Blood Pressure [Le ft Arm] Pulse Oximetry 100 100 98 [facility] Room Air Oxygen Flow Rate 03/15/25 20:30 03/15/25 20:45 03/15/25 21:00 Temperature 97.3 F L 97.2 F L 97.2 F L Pulse Rate 50 L 57 L 58 L Pulse Rate [Pulse Oximeter] Respiratory Rate 14 16 16 Blood Pressure 139/68 133/69 144/78 H Blood Pressure [Le ft Arm] Pulse Oximetry 95 96 98 [facility] Room Air Room Air Oxygen Flow Rate 03/15/25 21:15 03/15/25 21:30 03/15/25 22:00 Temperature 97.2 F L 97.1 F L 96.8 F L Pulse Rate 58 L 55 L 57 L Pulse Rate [Pulse Oximeter] Respiratory Rate 16 16 16 Blood Pressure 149/84 H 149/84 H 124/64 Blood Pressure [Le ft Arm] Pulse Oximetry 98 98 96 Oxygen Delivery Me thod Room Air Room Air Room Air Oxygen Flow Rate 03/15/25 22:30 03/15/25 22:51 03/15/25 23:00 Temperature 96.8 F L Pulse Rate 47 L 59 L Pulse Rate [Pulse Oximeter] Respiratory Rate 16 16 Blood Pressure 135/73 Blood Pressure [Le ft Arm] Pulse Oximetry 95 95 Oxygen Delivery Me thod Room Air Room Air Oxygen Flow Rate 03/16/25 00:00 03/16/25 01:00 03/16/25 02:00 Temperature 97.5 F L 97.5 F L 97.7 F Pulse Rate 73 63 55 L Pulse Rate [Pulse Oximeter] Respiratory Rate 18 16 16 Blood Pressure 153/94 H 163/80 H 147/85 H Blood Pressure [Le ft Arm] Pulse Oximetry 93 95 93 Oxygen Delivery Me thod Room Air Room Air Room Air Oxygen Flow Rate 03/16/25 03:00 03/16/25 07:00 03/16/25 07:00 Temperature 98.2 F 100.7 F H Pulse Rate 60 Pulse Rate [Pulse Oximeter] 76 Respiratory Rate 14 20 20 Blood Pressure 131/72 Blood Pressure [Le ft Arm] 149/71 H Pulse Oximetry 90 99 99 Oxygen Delivery Me thod Nasal Cannula Room Air Room Air Oxygen Flow Rate 1 03/16/25 07:00 03/16/25 11:00 03/16/25 15:00 Temperature 99.9 F H 98.8 F Pulse Rate 76 Pulse Rate [Pulse Oximeter] 79 81 Respiratory Rate 20 20 Blood Pressure Blood Pressure [Le ft Arm] 135/61 134/54 L Pulse Oximetry 99 Oxygen Delivery Me thod Room Air Room Air Oxygen Flow Rate Labs Labs: Laboratory Results - last 24 hr 03/16/25 05:59 WBC 10.21 RBC 3.50 L Hgb 9.9 L Hct 30.1 L MCV 86 MCH 28 MCHC 33 RDW Coeff of Jasson 12.5 Plt Count 225 Neut % (Auto) 78.4 H Lymph % (Auto) 13.3 L Mineral % (Auto) 7.4 Eos % (Auto) 0.4 Baso % (Auto) 0.3 Neut # (Auto) 8.00 H Lymph # (Auto) 1.40 Mineral # (Auto) 0.80 Eos # (Auto) 0.04 Baso # (Auto) 0.03 Abs Immat Gran (auto) 0.02 Imm/Tot Granulo (auto) 0.2 Sodium 137 Potassium 3.9 BUN 16 Creatinine 0.7 Estimated Creat Clear 87.01 Estimated GFR 103 Phosphorus 3.1 25-OH Vitamin D Total 17 L Imaging X-ray right hip: Attestation: I have reviewed the pertinent imaging results. Radiologist's impression: Findings/Impression: Hardware from a right total hip arthroplasty is in satisfactory position. Bone alignment is normal. No sign of acute fracture. Postop changes are within normal limits.
[2025-03-16] MEDS: CYCLOBENZAPRINE HCL 10 MG TABLET PO ×2 (17:25→20:29)
[2025-03-16] MEDS: OXYCODONE (CR) 10 MG TAB.ER.12H PO (17:25)
--- NOTE | 2025-03-16 19:24 | PC.NURSE ---
End of Shift Note: Patient has had a tough da with Pain control. Have spoken with Kan QUINONES regarding her pain. He has given her oxycontin see NOV. She has also been seen by Dr. Love who has also added in some other medications gabapentin and flexeril. Her pain level in now finally down to a 2/10. She was able to get a little nap in this afternoon. She is still able to ambulate to the bathroom with standby assist of 1 she has a goal to go home tomorrow if pain is better controlled than it was today. Report given to the next shift of what we have done today as far as pain control.
[2025-03-17 03:00] VITALS: BP 125/69; PULSE 86; RESP 18; TEMP 36.6; O2SAT 93
[2025-03-17] MEDS: OXYCODONE 5 MG TABLET PO ×2 (03:00→08:49)
[2025-03-17] MEDS: CYCLOBENZAPRINE HCL 10 MG TABLET PO (03:04)
[2025-03-17] MEDS: ACETAMINOPHEN 500 MG TABLET 1000 MG PO ×2 (04:40→11:32)
[2025-03-17] MEDS: OXYCODONE (CR) 10 MG TAB.ER.12H PO (04:41)
[2025-03-17 07:00] VITALS: BP 116/66; PULSE 102; RESP 18; RESP 20; TEMP 37.1; O2SAT 93; O2SAT 94
--- NOTE | 2025-03-17 07:26 | PC.NURSE ---
This patient was brought into my care at 2300. Currently on comfort cares. Q2 hr turns while awake. Patient slept through the night until morning for the most part. Two instances of loud, groaning as if in pain overnight. PRN morphine given for comfort. Difficult to rouse but verbal at times. Patient appeared to be deeply at rest at time of care transfer.?
[2025-03-17] MEDS: SENNOSIDES 1 TAB TABLET 2 TAB PO (08:48)
[2025-03-17] MEDS: GABAPENTIN 300 MG CAPSULE PO (08:48)
[2025-03-17] MEDS: hydrOXYzine pamoate 25 MG CAPSULE 50 MG PO (08:49)
[2025-03-17] MEDS: RIVAROXABAN 10 MG TABLET PO (08:49)
[2025-03-17] MEDS: polyethylene glycoL 3350 17 GM PACK PO (08:50)
--- NOTE | 2025-03-17 09:13 | P.DS_ITS ---
DS: Providers Provider Date Seen: 03/17/25 Date of admission: 03/15/25 20:57 Primary care physician: Lory Blum CNP Admitting Clinician: Maxx Arango MD Consults: 03/15/25 20:57 Consult to Occupational Therapy [CONS] Routine Comment: Reason(s) for OT Consult:: ADLs Prior to Discharge Any Restrictions?:: No Restrictions Comment: Consult to Physical Therapy [CONS] Routine Comment: Ambulate in the [place] today Reason(s) for PT Consult:: Evaluate and Treat Any Restrictions?:: No Restrictions Comment: Nursing Activity Consult to Physician [CONS] Routine Comment: Consulting Provider: Hospitalists Has provider been notified: No Consult to Teletype Or [place]pe Keyboard Operator [CONS] Routine Comment: Reason for Consult:: Discharge Planning Needs 03/16/25 16:28 Consult to Physical Therapy [CONS] Routine Comment: Reason(s) for PT Consult:: Evaluate and Treat Any Restrictions?:: No Restrictions Comment: Nocturnal myoclonus, stretching exercises to help ameliorate Attending Physician on discharge: Amada Ramirez [facility], PA-C [facility] Date of Discharge: 03/17/25 DS: Diagnosis Discharge Diagnosis (1) S/P total hip arthroplasty: Status: Acute Problem details: Anterior Total Hip Arthroplasty for femoral neck fracture (03/15/2025, Dr. Cobos) Postoperative cares and follow up per Orthopedic surgery. Postoperative pain has significantly improved overnight, will continue with Tylenol, oxycodone/OxyContin, gabapentin, hydroxyzine, cyclobenzaprine as needed. Discussed increased risk for falls, sedation. Avoid alcohol. (2) Femoral neck fracture: Status: Acute Problem details: Fracture from standing state S/p Anterior Total Hip Arthroplasty for femoral neck fracture (03/15/2025, Dr. Cobos) (3) Bone disease, metabolic: Status: Suspected Problem details: Nontraumatic hip fracture is suspicious for metabolic bone disease such as osteoporosis. CBC electrolytes calcium alkaline phosphatase are normal. Recommend outpatient follow-up with PCP for further workup, imaging (4) Sleep apnea: Status: Acute Problem details: Use home CPAP (5) Pre-diabetes: Status: Acute Problem details: Hemoglobin A1c is 5.8. (6) Morbid obesity: Status: Acute Problem details: Chronic (7) Bradycardia: Status: Resolved Problem details: Postop sinus bradycardia. Monitor. Asymptomatic. Postop bradycardia has resolved. (8) Restless legs syndrome with nocturnal myoclonus: Status: Acute Problem details: -will initiate gabapentin 300 mg p.o. b.i.d. for nocturnal myoclonus as well as postop thigh pain -will ask Physical therapy to recommend daily stretching exercises Patient is discharged with gabapentin 300 mg b.i.d.. Close outpatient follow-up with PCP for ongoing medication management DS: Summary Hospital Course Hospital Course: Course of care and details as noted above. As above, outpatient postoperative management and follow-up with Orthopedic surgery. Will need outpatient follow-up with PCP for further workup nontraumatic fracture. Remainder of chronic medical comorbidities were monitored and managed with home medications. Status at Discharge Overall status at discharge: patient is progressing back to baseline Time Spent with Patient Time attestation: Total time spent providing and/or coordinating discharge services: Time spent: Greater than 30 minutes Exam Narrative: Exam Narrative: PHYSICAL EXAM General: Pleasant, conversant, NAD Cardiovascular: RRR Pulmonary: No dyspnea Neurological: Alert, answering questions appropriately Skin: Warm, dry. Const: Vital Signs, click to edit/add: Vital Signs - 24 hr 03/16/25 11:00 03/16/25 15:00 03/16/25 15:00 Temperature 99.9 F H 98.8 F Pulse Rate [Pulse Oximeter] 79 81 Respiratory Rate 20 20 20 Blood Pressure [Le ft Arm] 135/61 134/54 L Pulse Oximetry 99 94 Oxygen Delivery Me thod Room Air Room Air Room Air 03/16/25 19:00 03/16/25 23:00 03/16/25 23:00 Temperature 99.4 F 98.1 F Pulse Rate [Pulse Oximeter] 88 86 Respiratory Rate 18 18 Blood Pressure [Le ft Arm] 144/68 H 126/64 Pulse Oximetry 94 94 94 Oxygen Delivery Me thod Room Air Room Air Room Air 03/17/25 03:00 03/17/25 07:00 03/17/25 07:00 Temperature 98 F 98.8 F Pulse Rate [Pulse Oximeter] 86 102 H Respiratory Rate 18 18 20 Blood Pressure [Le ft Arm] 125/69 116/66 Pulse Oximetry 93 93 94 Oxygen Delivery Me thod Room Air Room Air Room Air DS: Data Imaging Hip x-ray, multiple: Attestation: I have reviewed the pertinent imaging results. Radiologist's impression: Complete nondisplaced medially angulated right basicervical femoral neck fracture. IMPRESSION: Right femoral neck fracture as above. Dictated by Howard Roger MD @ 03/15/2025 11:07:56 AM ----- ADDENDUM ----- ADDENDUM: Comparison is made to a prior examination dated 03/08/2025. The right femoral neck fracture is new in the interval since that examination. The patient is also noted to have an MRI of the right hip prior to this radiographic examination on the same day. Please also refer to that report. Dictated by Howard Roger MD @ Mar 15 2025 11:08AM (Electronically Signed) For Patients: As a result of the Cures Act, medical imaging exams and procedure reports are released immediately into your electronic medical record. You may view this report before your referring provider. If you have questions, please contact your health care provider. INDICATION: Atraumatic pain. COMPARISON: None available. TECHNIQUE: AP pelvis, AP and cross-table lateral right hip FINDINGS: Complete nondisplaced medially angulated right basicervical femoral neck fracture. IMPRESSION: Right femoral neck fracture as above. Hip replacement surgery Technique: AP hip fluoroscopic image. Fluoroscopy time 75.3 seconds. Findings/Impression: Hardware from a right total hip arthroplasty is in satisfactory position POST OP RIGHT GAIL Technique: AP hip centered pelvis and lateral view right hip Findings/Impression: Hardware from a right total hip arthroplasty is in satisfactory position. Bone alignment is normal. No sign of acute fracture. Postop changes are within normal limits. Chest x-ray: Attestation: I have reviewed the pertinent imaging results. Radiologist's impression: There is hyperinflation and chronic interstitial change. There is no focal consolidation, effusion, or pneumothorax. The cardiomediastinal silhouette is within normal limits. The bony thorax is grossly intact. Impression: No acute cardiopulmonary abnormality. Discharge Plan Discharge Disposition: Home, Self-Care Date of Admission: 03/15/25 20:57 Attending Provider on Discharge: Amada Ramirez Consulting Providers: Cherelle Alvarez; Pauline Oquendo; Jose Wilcox; Andrew Adkins; Mathew Wills; Arslan Archibald; Amada Ramirez; Lisbeth Cardona; Rubina Diaz; Delfin Love; Oneida Miguel; Kan Dykes; Maxx Arango; Tejal Lopez; Filiberto Gonzáles; Roge Anderson; Yasmin Hall; Tamir Cowan; Wendy Amaya; Rupa Spencer; Eliza Shane; Nupur Gold; Lesly Gee; Yodit Peters; Kamala Zamudio; Treasure Zamudio; Ruslan Tarango; Buck Coburn; Heath Avalos; Sowmya Palomino; Cesia Sena; Max Thao Primary Care Provider: Lory Blum Condition: Improved Anticipated Discharge Date/Time: 03/17/25 12:00 Discharge Medications: New sennosides-docusate sodium [Senna-S] 8.6-50 mg tablet 1 - 4 tab-cap PO BID PRN (Reason: constipation) Qty: 60 0RF Rx Instructions: Hold medication if experiencing loose stools. aspirin 81 mg tablet,delayed release (DR/EC) 81 mg PO BID Qty: 50 0RF Rx Instructions: Medication to help prevent blood clots postoperatively; take TWICE daily. acetaminophen 500 mg capsule 500 - 1,000 mg PO Q6H MDD 4000mg PRNQty: 100 0RF oxycodone 5 mg tablet 2.5 - 5 mg PO Q4-6H MDD 6 PRN (Reason: pain) Qty: 42 0RF Rx Instructions: Take as needed for postop pain: 2.5mg mild pain, 5mg moderate-severe pain; wean as tolerated. rivaroxaban 10 mg tablet 10 mg PO DAILY Qty: 4 0RF Rx Instructions: Medication for deep vein clot prevention post surgery. Complete this medication before starting Aspirin. hydroxyzine pamoate 25 mg capsule 25 - 50 mg PO Q6H PRNQty: 60 0RF cyclobenzaprine 10 mg Tablet 10 mg PO TID PRNQty: 12 0RF gabapentin 300 mg Capsule 300 mg PO BID Qty: 60 0RF Discharge Orders: Discharge Order (Routine); Ordered 03/17/25 Ordered By: Kan Yu Consulting provider completed their portion of the discharge: Yes Patient Education: Acetaminophen (By mouth), Cyclobenzaprine (By mouth), Aspirin (By mouth), Hydroxyzine (By mouth), Gabapentin (By mouth), Oxycodone, Rapid Release (By mouth), Oxycodone, Slow Release (By mouth), Rivaroxaban (By mouth), Senna (By mouth), Anterior Hip Replacement (DC) Activity Level: Activity as Tolerated, Weight Bearing as Tolerated, Use Cane and Use Walker Activity Detail: Wound: ? Do not remove original dressing; we will remove this at first postop visit in 1 week. Only remove dressing if integrity is in question. ? No immersing wound in water; showering okay; light scrub with your hand and body soap, rinse, dab dry ? Sutures are under the skin, will dissolve; do not scrub the wound or apply ointments/lotions ? Call our office with any redness that streaks, excessive drainage from the wound, or wound gapping. Ice/Elevate: ? Ice as needed for swelling and discomfort; elevate extremity frequently above the heart. Motion/Exercise: ? Weight bear as tolerated operative extremity (walker/cane for ambulation assistance as needed) ? Per PT/OT. ? Straight leg raises daily: 1-2 sets of 10 reps Pain Medications: ? Oral narcotic as prescribed. Wean as tolerated. Additional acetaminophen and ibuprofen as needed. Blood Clot Prevention (DVT): ? Medication: 5 days of xarelto, followed by 25 days 81 mg aspirin by mouth twice daily (1 month total treatment) Driving: ? Do not drive while taking narcotic pain medication ? Anticipate 4-6 weeks no driving if operative leg is driving leg Dental: ? No elective dental work for 3 months post-op. If there is an urgent/emergent dental need, contact our office for an antibiotic prescription. Smoking/Alcohol: ? Do not smoke; do no drink alcohol especially when taking postoperative oral narcotic medication Seek Care from you Primary Care Provider if you experience the following issues in the postoperative phase and beyond: ? Bacterial infections such as: pneumonia, bacterial skin infection (cellulitis), UTI, high fever, chills unrelated to the operative body part - call your primary care physician urgently for treatment in hopes to protect your health and the metal implant. Referrals: ? PT, OT per patient preference - evaluate & treat total hip arthroplasty protocol, anterior approach (gait training, ROM, ADLs) Vaccines: ? No vaccines until 4-6 weeks postop Follow up: ? PA-C visit in 1 week. ? Ortho surgeon follow-up in 6 weeks; repeat radiographs AP pelvis, cross table lateral operative hip If there are any acute concerns regarding your surgery, please call our orthopedic clinic ([phone]) Discharge Diet: Regular Follow Up Appointments: Lory Blum, CORAL [Primary Care Provider, Family Practice] Kan Yu PA-C [Physician Endo Tech, Orthopedics] - 03/23/25 3:20 pm Referral Note: [facility] for follow-up. Forms: [employer] Info Instructions
--- NOTE | 2025-03-17 10:55 | P.ORPN_ITS ---
Subjective Subjective Date Seen: 03/17/25 Principal diagnosis: POD 2 right GAIL - anterior approach for femoral neck fx Interval history: Patient reports doing better this morning. No acute events over night. Pain is better controlled, managed with scheduled and PRN medications including short- acting oxycodone, extended release oxycodone, Vistaril, cyclobenzaprine, gabapentin, ice. DVT prophylaxis: Rivaroxaban, SCDs, walking. Denies fevers, chills, aches, N/V, CP, SOB/WELLS, or lightheadedness. Passing flatus. Appetite slowly improving. Ortho Exam Narrative Exam Narrative: -Patient appears comfortable in recliner; no apparent acute distress -Alert and oriented times 3 -Operative hip swollen; soft tissues supple; no obvious erythema. Ecchymosis minimal. Warmth appropriate -Surgical dressing clean, dry, intact; no obvious drainage, no erythematous streaking peripheral to the bandage -Bilateral calves soft and supple; no significant swelling, edema, tenderness, erythema, discoloration, warmth, or palpable cords -2+ DP/PT pulses, intact dermatomes and myotomes distally (5/5 strength). Const Vital Signs, click to edit/add: Vital Signs - 24 hr 03/16/25 11:00 03/16/25 15:00 03/16/25 15:00 Temperature 99.9 F H 98.8 F Pulse Rate [Pulse Oximeter] 79 81 Respiratory Rate 20 20 20 Blood Pressure [Left Arm] 135/61 134/54 L Pulse Oximetry 99 94 Oxygen Delivery Method Room Air Room Air Room Air 03/16/25 19:00 03/16/25 23:00 03/16/25 23:00 Temperature 99.4 F 98.1 F Pulse Rate [Pulse Oximeter] 88 86 Respiratory Rate 18 18 Blood Pressure [Left Arm] 144/68 H 126/64 Pulse Oximetry 94 94 94 Oxygen Delivery Method Room Air Room Air Room Air 03/17/25 03:00 03/17/25 07:00 03/17/25 07:00 Temperature 98 F 98.8 F Pulse Rate [Pulse Oximeter] 86 102 H Respiratory Rate 18 18 20 Blood Pressure [Left Arm] 125/69 116/66 Pulse Oximetry 93 93 94 Oxygen Delivery Method Room Air Room Air Room Air Assessment and Plan Assessment and plan (1) S/P total hip arthroplasty: Problem details: Anterior Total Hip Arthroplasty for femoral neck fracture (03/15/2025, Dr. Cobos) Status: Acute (2) Femoral neck fracture: Problem details: Fracture from standing state Status: Acute (3) Bone disease, metabolic: Problem details: Nontraumatic hip fracture is suspicious for metabolic bone disease such as osteoporosis. CBC electrolytes calcium alkaline phosphatase are normal. Status: Suspected (4) Sleep apnea: Problem details: Use home CPAP Status: Acute (5) Pre-diabetes: Problem details: Hemoglobin A1c is 5.8. Status: Acute (6) Morbid obesity: Status: Acute (7) Bradycardia: Problem details: Postop sinus bradycardia. Monitor. Asymptomatic. 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 b.i.d. for nocturnal myoclonus as well as postop thigh pain -will ask Physical therapy to recommend daily stretching exercises Status: Acute Plan - PT/OT consult for education and assistance. - Social work consult for discharge planning - Prescribed analgesics as needed - DVT prophylaxis: Rivaroxaban, walking, and SCDs - Together, we decided to discontinue extended release oxycodone for in hospital and at discharge. She will call if her pain becomes an issue at home. - Anticipation is for discharge to home with today 03/17/2025 if the patient remains medically stable, pain is controlled, and they are safe with mobilization.
== END 2025-03-17 12:24 | disposition home or self-care (01) | DRG 522 ==
LOC: ED 12:24 → OR 13:08 → MEDSURG 20:54
PROVIDERS: Admitting Provider Family Medicine; Emergency Provider Family Medicine; PCP Registered Nurse; Visit Provider Orthopaedic Surgery Sports Medicine
PROC: 0SR903A Replacement of Right Hip Joint with Ceramic Synthetic Substitute, Uncemented, Open Approach (ICD-10-PCS; CPT 27130; principal; 2025-03-15 14:45)
DX: M80.851A Other osteoporosis with current pathological fracture, right femur, initial encounter for fracture (principal); Z68.41 Body mass index [BMI] 40.0-44.9, adult; I97.191 Other postprocedural cardiac functional disturbances following other surgery; R00.1 Bradycardia, unspecified; G89.18 Other acute postprocedural pain; E66.01 Morbid (severe) obesity due to excess calories; G47.30 Sleep apnea, unspecified; R73.03 Prediabetes; M25.552 Pain in left hip; M25.551 Pain in right hip; G89.29 Other chronic pain; G25.81 Restless legs syndrome; G47.69 Other sleep related movement disorders
CPT/HCPCS: 01214; 36415; 64450; 71045; 73501; 73502; 76000; 76942; 82306; 82565; 84100; 84132; 84295; 84520; 85025; 86850; 86900; 86901; 97110; 97116; 97161; 97165; 97535; 99284; 99285; A9270; C1776; J0330; J0690; J1100; J1171; J1885; J2250; J2405; J2704; J2710; J2795; J3010; J7120

== ENCOUNTER 2025-04-19 16:30 | Outpatient (RCR) | payer OTHER, SELFPAY ==
--- NOTE | 2025-03-17 19:55 | PC.NURSE ---
The note submitted by myself on 03/16/25 was a description of events for a different patient than Shoshana Flores, 03/28/25. The following is the correct notation. -- Patient was alert and oriented upon initial assessment and vitally stable. They have been ambulating with a rolling walker for safety. Unable to move very well currently given stiffness of right leg but she is managing well. Pain continues to be moderate but controlled with PRN medications which were given several times overnight. Pain can be both in her right hip as well as a tension-like pain of the lower right leg. Requires assistance with getting her leg up onto the bed after ambulating. Ice pack in place over right hip when at rest. Hypoactive bowel noises. The patient cannot recall the last time she stooled but it was before admission. This has been communicated with oncoming nurse and orders put through for further pharmacological intervention and mobility promotion. Notably frequent with their need to urinate. At time of care transfer the patient appeared to be in a stable state of health but still sickly in their weakness of strength. ?
== END 2025-08-17 23:59 | disposition home or self-care (01) ==
PROVIDERS: PCP Registered Nurse; Visit Provider Orthopaedic Surgery Sports Medicine
DX: Z48.89 Encounter for other specified surgical aftercare (principal); M25.551 Pain in right hip; S72.001D Fracture of unspecified part of neck of right femur, subsequent encounter for closed fracture with routine healing; R53.1 Weakness; Z51.89 Encounter for other specified aftercare
CPT/HCPCS: 97110; 97140; 97161

== ENCOUNTER 2025-05-20 15:22 | Outpatient (CLI) | payer OTHER, SELFPAY ==
--- NOTE | 2025-05-20 15:30 | CRLHL7_ITS ---
For Patients: As a result of the Century Cures Act, medical imaging exams and procedure reports are released immediately into your electronic medical record. You may view this report before your referring provider. If you have questions, please contact your health care provider. XR DXA BONE MINERAL DENSITY (BMD) Current height (in): 66.0. Weight (lb): 242.0. Menopause age: 45. Ethnicity: White. Reason for exam: Screening. 1. Have you had a previous hip or vertebral fracture? Yes. 2. Have you had any fractures during your adult life which did not result from significant trauma (e.g., auto accident)? Yes. 3. Did either of your parents have a hip fracture? No. 4. Do you smoke? No. 5. Have you ever taken Glucocorticoids? No. 6. Do you have rheumatoid arthritis? No. 7. Do you have secondary osteoporosis? No. 8. Do you drink 3 or more alcoholic drinks per day? No. 9. Are you being treated for osteoporosis? No. 10. Have you ever taken any of the following medications: Actonel, Evista, Fosamax, Miacalcin, Reclast, Boniva, Forteo, HRT (i.e. estrogen/hormone therapy), Protelos, Prolia, Vitamin D, Calcium, other ??? please specify. ANSWER: No. 11. Do you have any of the following medical conditions: Anorexia or bulimia, asthma or emphysema, end stage renal disease, hyperparathyroidism, any seizure disorders, cancer, inflammatory bowel diseases, hysterectomy, other ??? please specify. ANSWER: Yes, hysterectomy. 12. What was your maximum height (inches)? 66. 13. Do you perform weight bearing exercise regularly? No. 14. Do you regularly consume dairy products? Yes. 15. Do you drink caffeinated beverages? Yes. 16. At what age did your period start? 12. 17. Are you premenopausal? No. 18. How many full-term pregnancies have you had? 4. 19. Have you ever missed your period for more than 6 months in a row (not including or menopause)? No. TECHNIQUE: Bone mineral density study was performed using the [employer] group. FINDINGS: The results of the study expressed as bone mineral density (BMD) are as follows: Lumbar spine L1 to L4: BMD: 0.990 g/cm2. T-score: -0.5. Z-score: 0.5 Neck Left: BMD: 0.793 g/cm2. T-score: -0.5. Z-score: 0.5 Total Left: BMD: 0.992 g/cm2. T-score: 0.4. Z-score: 1.0 IMPRESSION: Normal bone density. Zachary Wilson M.D. Diagnostic Radiologist [email or web address] Transcribed: 10:52 am DW/Dictated by: Zachary Wilson MD @ 05/21/2025 10:18:00 AM (Electronically Signed)
== END 2025-05-20 15:23 | disposition home or self-care (01) ==
LOC: RAD 15:23
PROVIDERS: Visit Provider Orthopaedic Surgery Sports Medicine
DX: Z13.820 Encounter for screening for osteoporosis (principal); S72.001A Fracture of unspecified part of neck of right femur, initial encounter for closed fracture; Z96.641 Presence of right artificial hip joint
CPT/HCPCS: 77080

== ENCOUNTER 2025-06-30 14:29 | Outpatient (CLI) | payer OTHER, SELFPAY ==
--- NOTE | 2025-06-30 14:40 | CRLHL7_ITS ---
For Patients: As a result of the Century Cures Act, medical imaging exams and procedure reports are released immediately into your electronic medical record. You may view this report before your referring provider. If you have questions, please contact your health care provider. INDICATION: BILATERAL SCREENING MAMMMOGRAM, ASYMPTOMATIC 55 Y/O FEMALE COMPARISON: 03/09/2022, 05/13/2020, 02/05/2019 TECHNIQUE: Digital mammogram in CC and MLO projections including computer-aided detection (CAD) and tomosynthesis. BREAST COMPOSITION: The breasts are almost entirely fatty. FINDINGS: No suspicious findings. ASSESSMENT: BI-RADS 1 Negative RECOMMENDATION: Annual screening mammogram. A lay language report of this examination will be provided to the patient. Dictated by: Zachary Wilson MD @ 07/01/2025 08:54:11 (Electronically Signed)
== END 2025-06-30 14:30 | disposition home or self-care (01) ==
LOC: MAMMO 14:30
PROVIDERS: PCP Registered Nurse; Referring Provider Registered Nurse; Visit Provider Registered Nurse
DX: Z12.31 Encounter for screening mammogram for malignant neoplasm of breast (principal)
CPT/HCPCS: 77063; 77067